=== PATIENT | male | born 1990 | race Caucasian/White ===

== ENCOUNTER 2016-07-19 11:23 | Emergency (ER) | payer OTHER ==
[2016-07-19 11:29] VITALS: RESP 16
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
[2016-07-19 12:54] LABS: COLOR AMBER; LEUKOCYTE ESTERASE,URINE NEGATIVE (NEGATIVE); NITRITE,URINE NEGATIVE (NEGATIVE)
[2016-07-19 13:09] LABS: MUCUS 3+ /lpf (NONE-1+); RBC,URINE 25-50 /hpf (0-3)
[2016-07-19 13:30] VITALS: BP 146/76; PULSE 102; TEMP 97.9; O2SAT 95
[2016-07-20 13:39] LABS: CHLAMYDIA AMPLIFICATION GENPRB NEGATIVE (NEGATIVE)
== END 2016-07-19 13:29 | disposition home or self-care (01) ==
DX: L73.9 Follicular disorder, unspecified (principal); F17.200 Nicotine dependence, unspecified, uncomplicated

== ENCOUNTER 2016-07-20 13:24 | Emergency (ER) | payer OTHER ==
[2016-07-20 13:30] VITALS: BP 157/80; TEMP 98.2
--- NOTE | 2016-07-20 13:48 | EDPHY ---
H & P Time Seen by Provider: 07/20/16 13:38 HPI/ROS: CHIEF COMPLAINT: Penile swelling, low back pain. HISTORY OF PRESENT ILLNESS: This patient is a 25 year old male who presents to the Emergency Department complaining of penile swelling and associated low back and penile pain beginning four day prior to arrival. He was seen in this facility yesterday 07/19 for the same complaint. He presents again today concerned that he might have herpes and complaining that the pain has increased since yesterday. He tells me that he had oral sex four nights ago and was unable to keep an erection during sex. He masturbated "aggressively" for 2-3 hours following the oral sex and still was unable to keep an erection. When he woke up the next day, he notice blisters on his penis and associated penile swelling. He also complains of pelvic pain radiating bilaterally to his lower back. He denies any urinary complaints or penile discharge. Medical history includes chlamydia at age 17. REVIEW OF SYSTEMS: Constitutional: No fever, no chills Eyes: No visual changes ENT: No sore throat Respiratory: No cough, no shortness of breath Cardiac: No chest pain Gastrointestinal: No nausea, no vomiting, no abdominal pain Genitourinary: +penile swelling, +penile blisters, no hematuria, no dysuria, no penile discharge Musculoskeletal: +low back pain, no leg pain or swelling Skin: No rash Neurological: No headache, no numbness, no weakness Psychiatric: No depression Past Medical/Surgical History: Unspecified "autoimmune deficiency." Social History: Just arrived 2 weeks prior to arrival for work project. Smoking Status: Current every day smoker Physical Exam: General Appearance: Alert, very anxious, no distress Eyes: Pupils equal and round, no conjunctival pallor or injection ENT, Mouth: Mucous membranes moist Neck: Normal inspection Back: No midline tenderness to palpation Respiratory: Lungs are clear to auscultation Cardiovascular: Regular rate and rhythm Gastrointestinal: Abdomen is soft and non-tender Genitourinary: Penis is mildly edematous, 5-7mm non-tender ulcerations at the base of the penis, small scabs in pubic region. Neurological: A&O, 2+patellar reflexes, motor and lower extremities 5/5 including dorsiflexion of the toe and ankle, normal gait Skin: Warm and dry, no rash Extremities: Nontender, no pedal edema Psychiatric: Anxious, normal affect Constitutional: Initial Vital Signs Temperature (C) 36.8 C 07/20/16 13:27 Heart Rate 102 H 07/20/16 13:27 Respiratory Rate 20 07/20/16 13:27 Blood Pressure 157/80 H 07/20/16 13:27 O2 Sat (%) 94 07/20/16 13:27 O2 Delivery Mode Room Air Allergies/Adverse Reactions: No Known Allergies Allergy (Verified 07/20/16 13:25) Home Medications: Medication Instructions Recorded Cephalexin [Keflex] 500 mg PO TID 10 Days 07/19/16 Sulfamethox/Tmp 800/160 mg 1 tab PO BID@1000,2200 10 Days 07/19/16 [Bactrim Ds] Medical Decision Making ED Course/Re-evaluation: I reviewed medical records from yesterday, 07/19/2016. Lab results at that time indicated: Negative chlamydia, negative gonorrhea, negative RPR. Will proceed with herpes culture today. 600mg PO Ibuprofen administered for pain. I discussed results of yesterday's blood work with the patient, who is relieved. I shared with him that he should call for results of herpes culture in two days. He is given an outpatient physician referral, Ibuprofen instructions, and return to the ED precautions. He will be discharged home in good condition. - Data Points Laboratory Results: 07/20/16 14:10 HSV Source Description Pending HSV I DNA PCR Pending HSV II DNA PCR Pending Medications Given: Discontinued Medications Ibuprofen (Motrin) 600 mg PO EDNOW ONE Stop: 07/20/16 13:57 Last Admin: 07/20/16 14:23 Dose: 600 mg Departure - Departure Disposition: Home, Routine, Self-Care Clinical Impression: Folliculitis Low back strain Qualifiers: Encounter type: initial encounter Qualified Code(s): S39.012A - Strain of muscle, fascia and tendon of lower back, initial encounter Condition: Good Instructions: Low Back Strain (ED), Folliculitis (ED) Additional Instructions: 1. Your blood work from yesterday shows that there is no sign of syphilis, chlamydia, or gonorrhea. Please call the Emergency Department in 2 days for results of today's blood test. 2. Take 600mg Ibuprofen every 6 hours as needed for pain and inflammation. 3. Follow-up with a primary care provider for reevaluation if your symptoms do not improve in the next 3-5 days. We have referred you to our on-call provider, Dr. Callaway. 4. Return to the Emergency Department with severe penile pain, fever or chills, worsening penile sores, or other serious concerns. Referrals: Hitesh Callaway DO [Medical Doctor] - As per Instructions Stand Alone Forms: Work Excuse Report Scribed for: Sol Castañeda Report Scribed by: Jacki Norton Date of Report: 07/20/16 Time of Report: 13:40 Physician Review and Approval Statement: 07/20/16 13:41 Portions of this note were transcribed by a ophthalmic medical technician. I personally performed a history, physical exam, medical decision making, and confirmed accuracy of information the transcribed note.
[2016-07-20] MEDS ORDERED: IBUPROFEN 600 MG TAB PO ONE (13:56)
[2016-07-20 14:24] VITALS: PULSE 108; RESP 18; O2SAT 96
[2016-07-22 14:11] LABS: SPECIMEN SOURCE GENITAL SWAB
== END 2016-07-20 14:23 | disposition home or self-care (01) ==
DX: S39.012A Strain of muscle, fascia and tendon of lower back, initial encounter (principal); L73.9 Follicular disorder, unspecified; F17.200 Nicotine dependence, unspecified, uncomplicated; X58.XXXA Exposure to other specified factors, initial encounter
CPT/HCPCS: 87529-90